=== PATIENT | female | born 1990 | race Caucasian/White ===

== ENCOUNTER 2021-10-17 18:59 | Inpatient (IN) | payer BC ==
[2021-10-17] MEDS ORDERED: Nalbuphine HCl 10 MG/ 1ML Amp IVPUSH PRN ×2 (22:39→22:47)
[2021-10-17] MEDS ORDERED: Sodium Chloride 0.9% 10 ML Syringe FLUSH PRN ×2 (22:39→22:47)
[2021-10-17] MEDS ORDERED: Lidocaine 1% 50 ML MDV INJECT PRN (22:39)
[2021-10-17] MEDS ORDERED: Ondansetron 4 MG/2 ML SDV IVPUSH PRN (22:39)
[2021-10-17] MEDS ORDERED: Lactated Ringers 1,000 ML IV SCH (22:45)
[2021-10-17] MEDS ORDERED: Oxytocin/Lactated Ringers 10 UNIT/1,000 ML BAG IV SCH ×4 (22:45→22:47)
[2021-10-17] MEDS: Lactated Ringers 1,000 ML IV SCH (23:15)
[2021-10-18] MEDS ORDERED: Acetaminophen 325 MG Tab PO PRN ×2 (03:38→23:00)
[2021-10-18] MEDS ORDERED: Sodium Chloride 0.9% 10 ML Syringe FLUSH SCH ×2 (09:00)
[2021-10-18] MEDS ORDERED: Oxytocin/Lactated Ringers 20 UNIT/1,000 ML BAG IV SCH (13:00)
[2021-10-18] MEDS ORDERED: Oxytocin/Lactated Ringers 20 UNIT/1,000 ML BAG ONE (13:05)
[2021-10-18] MEDS: Lactated Ringers 1,000 ML IV SCH (17:41)
[2021-10-18] MEDS ORDERED: Lidocaine 1% 50 ML MDV ONE (21:49)
[2021-10-18] MEDS ORDERED: Ibuprofen 600 MG Tab PO PRN (23:00)
[2021-10-18] MEDS ORDERED: Docusate Sodium 100 MG Cap PO PRN (23:00)
[2021-10-18] MEDS ORDERED: Witch Hazel Medicated Pads 40/Jar TOP PRN (23:00)
[2021-10-18] MEDS ORDERED: Benzocaine/Menthol 20%-0.5% Spray 78 GM Cannister TOP PRN (23:00)
== END 2021-10-19 10:00 | disposition home or self-care (01) | DRG 560 ==
LOC: JD.OBCHECK 18:59 → JD.OB 19:02 → JD.OBCHECK 22:52 → OBSVTOIN 10-18 21:41 → JD.OB 10-18 21:42
PROVIDERS: ADMIT Obstetrics & Gynecology; ATTEND Obstetrics & Gynecology
PROC: 10E0XZZ Delivery of Products of Conception, External Approach (ICD-10-PCS; principal; 2021-10-18)
PROC: 10907ZC Drainage of Amniotic Fluid, Therapeutic from Products of Conception, Via Natural or Artificial Opening (ICD-10-PCS; 2021-10-18)
PROC: 0KQM0ZZ Repair Perineum Muscle, Open Approach (ICD-10-PCS; 2021-10-18)
PROC: 3E033VJ Introduction of Other Hormone into Peripheral Vein, Percutaneous Approach (ICD-10-PCS; 2021-10-18)
PROC: 4A1HXCZ Monitoring of Products of Conception, Cardiac Rate, External Approach (ICD-10-PCS; 2021-10-18)
DX: O76 Abnormality in fetal heart rate and rhythm complicating labor and delivery (principal); Z3A.39 39 weeks gestation of pregnancy; Z37.0 Single live birth; O70.1 Second degree perineal laceration during delivery
CPT/HCPCS: 36415; 59025; 59409; 85027; 86592; 86850; 86900; 86901; 87653; A9270-GY; J2001; J2300; J2590; J7120

== ENCOUNTER 2022-09-13 20:38 | Emergency (ER) | payer BC ==
[2022-09-13] MEDS ORDERED: Sodium Chloride 0.9% 1,000 ML IV ONE (21:22)
[2022-09-13] MEDS ORDERED: Ondansetron 4 MG/2 ML SDV IVPUSH ONE (21:22)
[2022-09-13 21:45] LABS: BASOPHILS ABSOLUTE AUTO 0.03 K/mm3 (0.01-0.08); BASOPHILS PERCENT AUTO 0.3 % (0.1-1.2); EOSINOPHILS ABSOLUTE AUTO 0.02 K/mm3 (0.04-0.36); EOSINOPHILS PERCENT AUTO 0.2 (0.7-5.8); HEMATOCRIT 40.7 % (34.1-44.9); HEMOGLOBIN 13.3 gm/dl (11.2-15.7); IMMATURE GRAN ABSOLUTE AUTO 0.04 K/mm3 (0.00-0.10); IMMATURE GRAN PERCENT AUTO 0.3 % (<=1.0); LYMPHOCYTES ABSOLUTE AUTO 0.97 K/mm3 (1.18-3.74); LYMPHOCYTES PERCENT AUTO 8.4 % (19.3-51.7); MEAN CORPUSCULAR HEMOGLOBIN 29.5 pg (25.6-32.2); MEAN CORPUSCULAR HGB CONC 32.7 g/dl (32.2-35.5); MEAN CORPUSCULAR VOLUME 90.2 fl (79.4-94.8); MEAN PLATELET VOLUME 10.6 fl (9.4-12.3); MONOCYTES ABSOLUTE AUTO 0.78 K/mm3 (0.24-0.36); MONOCYTES PERCENT AUTO 6.8 % (4.7-12.5); NEUTROPHILS ABSOLUTE AUTO 9.66 K/mm3 (1.56-6.13); PLATELET COUNT,PLT 214 K/mm3 (182-369); RED BLOOD CELL COUNT 4.51 M/mm3 (3.98-5.22)
[2022-09-13 21:51] LABS: APPEARANCE,URINE CLEAR (Clear); BILIRUBIN,URINE 1+ (Negative); COLOR,URINE YELLOW (Yellow); GLUCOSE,URINE NEGATIVE (Negative); KETONES,URINE 4+ (Negative); LEUKOCYTE ESTERASE,URINE NEGATIVE (Negative); NITRITE,URINE NEGATIVE (Negative); OCCULT BLOOD,URINE NEGATIVE (Negative); PROTEIN,URINE TRACE (Negative); UROBILINOGEN,URINE 0.2 (0.2-1.0)
[2022-09-13 22:03] LABS: RBC,URINE 0-5 /hpf (0-5); WBC,URINE 0-5 /hpf (0-5)
[2022-09-13 22:04] LABS: BACTERIA,URINE FEW /hpf (FEW); MUCUS,URINE MODERATE /hpf (FEW)
[2022-09-13 22:05] LABS: A/G RATIO 1.1 (1-2); ALANINE AMINOTRANSFERASE,ALT 18 U/L (14-59); ALBUMIN 3.6 g/dl (3.4-5.0); ALKALINE PHOSPHATASE 63 U/L (46-116); ANION GAP 13.4 (5-15); ASPARTATE AMNIOTRANSFERASE,AST 12 U/L (15-37); BILIRUBIN TOTAL 0.5 mg/dL (0.2-1.0); BLOOD UREA NITROGEN,BUN 22 mg/dL (7-18); BUN/CREATININE RATIO 36.7 (14-18); C-REACTIVE PROTEIN < 0.2 mg/dL (<1.0); CALCIUM 8.8 mg/dL (8.5-10.1); CARBON DIOXIDE,CO2 25 mEq/L (21-32); CHLORIDE,CL 103 mEq/L (98-107); CREATININE 0.6 mg/dL (0.55-1.02); EST CRCL DRUG DOSING (CG) 137.04 mL/min; ESTIMATED GFR 123 mL/min (>60); GLUCOSE RANDOM 97 mg/dL (70-99); POTASSIUM,K 3.4 mEq/L (3.5-5.1); PROTEIN TOTAL,TP 6.9 g/dl (6.4-8.2); SODIUM,NA 138 mEq/L (136-145)
[2022-09-13] MEDS ORDERED: Azithromycin 250 MG Tab PO ONE (22:15)
== END 2022-09-13 23:08 | disposition home or self-care (01) ==
LOC: JD.ED 20:38
DX: K52.9 Noninfective gastroenteritis and colitis, unspecified (principal)
CPT/HCPCS: 36415; 80053; 81001; 84703; 85025; 86140; 87045; 87046; 87899; 96361; 96374; 99284; A9270; J2405; J7030